=== PATIENT | female | born 1985 ===

== ENCOUNTER 2019-05-30 17:03 | Emergency (ER) | payer OTHER ==
--- NOTE | 2019-05-30 17:13 | UC ---
FLU HPI - HPI Summary HPI Summary: 33 yo female presents, accompanied by and 2 children, with flu-like symptoms. She tells me that about 5-6 days ago she developed a fever of around 103F, body aches, fatigue, cough, and sore throat. Symptoms have been slowly improving with tylenol OTC. Today she felt wheezing in her chest and had an episode of loose stools. Her father is in the hospital with PNA and this concerns her today. She has not had a fever in a few days. She is eating and drinking well. Denies sinus symptoms, SOB, chest pain, abdominal pain, n/v, dysuria. - History of Current Complaint Stated Complaint: FLU SYMPTOMS Time Seen by Provider: 05/30/19 17:13 Hx Obtained From: Patient Onset/Duration: Gradual Onset Severity Currently: Moderate Severity Initially: Mild Pain Intensity: 4 Pain Scale Used: 0-10 Numeric - Allergy/Home Medications Allergies/Adverse Reactions: Allergies Allergy/AdvReac Type Severity Reaction Status Date / Time No Known Allergies Allergy Verified 05/30/19 18:06 Home Medications: Home Medications Acetaminophen [Tylenol] 325 mg PO Q6H PRN 05/30/19 [History Confirmed 05/30/19] PMH/Surg Hx/FS Hx/Imm Hx - Additional Past Medical History Additional PMH: None - Surgical History Surgical History: None - Family History Known Family History: Positive: None - Social History Occupation: Employed Full-time Lives: With Family Alcohol Use: None Substance Use Type: None Smoking Status (MU): Never Smoked Tobacco Review of Systems All Other Systems Reviewed And Are Negative: No Constitutional: Positive: Fever, Fatigue, Other - Body aches Respiratory: Positive: Negative Cardiovascular: Positive: Negative Neurovascular: Positive: Negative Neurological: Positive: Negative Psychological: Positive: Negative Physical Exam - Summary Physical Exam Summary: GENERAL: NAD. WDWN. No pain distress. SKIN: No rashes, sores, lesions, or open wounds. HEENT: Head: AT/NC Eyes: EOM intact. Conjunctiva clear without inflammation or discharge. Ears: Hearing grossly normal. TMs intact, no bulging, erythema, or edema. Nose: Nasal mucosa pink and moist. NTTP maxillary and frontal sinus. Throat: Posterior oropharynx without exudates, erythema, or tonsillar enlargement. Uvula midline. NECK: Supple. Nontender. No lymphadenopathy. CHEST: CTAB. No r/r/w. No accessory muscle use. Breathing comfortably and in no distress. CV: RRR. Pulses intact. Cap refill <2seconds NEURO: Alert. PSYCH: Age appropriate behavior. Triage Information Reviewed: Yes Vital Signs: Laboratory Tests 05/30/19 17:31 Influenza A (Rapid) Positive A Vital Signs: Temp Pulse Resp BP Pulse Ox 100.9 F 92 18 105/73 98 05/30/19 18:00 05/30/19 18:00 05/30/19 18:00 05/30/19 18:00 05/30/19 18:00 Vital Signs Reviewed: Yes Diagnostics - Radiology CXR Radiology Interpretation Completed By: Radiologist Summary of Radiographic Findings: IMPRESSION: RIGHT LOWER LOBE CONSOLIDATION. RECOMMEND FOLLOW-UP UNTIL RESOLUTION TO EXCLUDE UNDERLYING PULMONARY PARENCHYMAL PATHOLOGY. Flu Course/Dx - Course Course Of Treatment: CXR as above. POC flu positive. Rx for amoxicillin and zpak. Advised to recheck in 5-6 weeks with PCP - Differential Dx/Diagnosis Provider Diagnosis: Pneumonia, Influenza Discharge ED - Sign-Out/Discharge Documenting (check all that apply): Patient Departure All imaging exams completed and their final reports reviewed: Yes - Discharge Plan Condition: Stable Disposition: HOME Prescriptions: Amoxicillin PO (*) [Amoxicillin 500 MG CAP*] 1 gm PO TID 5 Days #30 cap Azithromycin TAB* [Zithromax TAB (Z-DAGO) 250 mg #6 tabs] 2 tab PO .TODAY, THEN 1 DAILY #1 dago Patient Education Materials: Influenza (ED), Community Acquired Pneumonia (ED) Referrals: No Primary Care Phys,NOPCP [Primary Care Provider] - Additional Instructions: Most people with the flu recover within one to two weeks without treatment. However, serious complications of the flu can occur. Go to the ER immediately if you: -- You feel short of breath or have trouble breathing -- You have pain or pressure in your chest or stomach -- You have signs of being dehydrated, such as dizziness when standing or not passing urine -- You feel confused -- You cannot stop vomiting or you cannot drink enough fluids I recommend a follow up with your primary doctor in 5-6 weeks for a recheck of your pneumonia - Billing Disposition and Condition Condition: STABLE Disposition: Home
[2019-05-30 17:37] LABS: Influenza A Molecular POSITIVE (Negative)
== END 2019-05-30 18:20 | disposition home or self-care (01) ==
LOC: UCEAST 17:03
DX: J11.00 Influenza due to unidentified influenza virus with unspecified type of pneumonia (principal); J18.9 Pneumonia, unspecified organism
CPT/HCPCS: 71046; 99202; G0463